=== PATIENT | female | born 1985 | race Caucasian/White ===

== ENCOUNTER 2020-08-18 20:02 | Inpatient (IN) ==
[2020-08-18] MEDS ORDERED: OXYTOCIN 30 UNITS/500 ML BAG IV PRN ×2 (20:33→23:32)
[2020-08-18] MEDS ORDERED: LACTATED RINGER'S 1,000 ML IV PRN (20:33)
[2020-08-18] MEDS ORDERED: ePHEDrine sulfate 50 MG/ML AMP ONE (20:43)
[2020-08-18] MEDS ORDERED: fentaNYL citrate 100 MCG/2 ML VIAL ONE (20:43)
[2020-08-18] MEDS ORDERED: SODIUM CHLORIDE 0.9% INJ 10 ML VIAL ONE (20:43)
[2020-08-18] MEDS ORDERED: BUPIVACAINE 0.25% 30 ML VIAL ONE (20:43)
[2020-08-18] MEDS ORDERED: fentaNYL 2MCG/ML ROPIVACAINE 1.25MG/ML 100 ML BAG EPI ONE (20:44)
[2020-08-18 20:58] LABS: Hematocrit (blood only) 40.2 % (37-47); Hemoglobin 13.9 g/dL (12.0-16.0); Mean Corpuscular Hemoglobin 31.7 pg (25-34); Mean Corpuscular Hgb Conc 34.6 g/dL (32-36); Mean Corpuscular Volume 91.8 fL (80-100); Platelet Count 305 K/uL (130-400); RDW Coefficient of Variation 13.7 % (11.5-14.5); RDW Standard Deviation 46.2 fL (36.4-46.3); Red Blood Count 4.38 M/uL (4.2-5.4); White Blood Count 10.82 K/uL (4.8-10.8)
[2020-08-18] MEDS ORDERED: diphenhydrAMINE 50 MG/ML VIAL IV PRN (21:23)
[2020-08-18] MEDS ORDERED: NALOXONE HCL 0.4 MG/1 ML VIAL/CARP IV PRN (21:23)
[2020-08-18] MEDS ORDERED: ePHEDrine sulfate 50 MG/ML AMP IV PRN (21:23)
[2020-08-18] MEDS ORDERED: fentaNYL 2MCG/ML ROPIVACAINE 1.25MG/ML 100 ML BAG EPI PRN (21:23)
[2020-08-18] MEDS ORDERED: ONDANSETRON INJ 2 MG/ML 2 ML VIAL IV PRN (21:23)
[2020-08-18] MEDS ORDERED: NALOXONE HCL 1 MG in SODIUM CHLORIDE 0.9% 1000ML 1,000 ML IV PRN (21:23)
--- NOTE | 2020-08-18 21:23 | Anesthesiology Consultation ---
Date of Service August 18, 2020 Assessment & Plan ASA ASA3 Proposed Anesthesia Anesthesia Type: Labor Epidural Risk / Benefits Reviewed With: PT / POA / Parent / Guardian, Accepts Plan and Informed Consent Obtained History Height/Weight Height: 5 ft 6 in Weight: 86.183 kg Allergies Allergy/AdvReac Type Severity Reaction Status Date / Time No Known Allergies Allergy ` Verified 08/15/20 11:37 Medications Home Medications Medication Instructions Recorded Confirmed Last Taken vits no.126-ferrous fum 1 tab PO DAILY #90 tab 03/11/20 08/18/20 08/18/20 08:00 28 mg iron-folic acid 800 mcg tablet buprenorphine HCl [Subutex] 8 mg SUBLINGUAL BID 08/18/20 08/18/20 08/18/20 16:30 Past Medical History Medical History Anxiety Chlamydia Depression Flank pain Hx of scoliosis Kidney stones Ovarian cyst Pelvic pain PID (pelvic inflammatory disease) Supervision of normal intrauterine in multigravida Exercise / Class Metabolic Activity II 4-5 Yardwork/Stairs/Walk up hill Past Family History Family History Other Diabetes Hypertension Past Surgical History Surgical History S/P tonsillectomy S/P wisdom tooth extraction Past Anesthesia History No Hx of Anesthesia Complications and No Family Hx of Anesthesia Complications History of PONV No Hx of PONV and No Hx of Motion Sickness Social History Smoking Status: Current every day smoker tobacco type: cigarettes Smoking cigarettes per day: 20 Hx Alcohol Use: No Hx Substance Use: Yes substance use type: former substance user Review of Systems denies fever/cough/ colds/ chest pain/ SOB/ OANH denies OANH Physical Exam Vital Signs Last Vital Signs Temp 36.8 C 08/18/20 20:11 Pulse 67 08/18/20 21:53 Resp 18 08/18/20 20:11 BP 118/70 08/18/20 21:48 Pulse Ox 98 08/18/20 21:53 ENMT Mouth: no TMJ abnormality and no dentition abnormality Thyromental Distance: > or= 3.5 Finger Breadths Mallampati Class: II Neck neck extension not limited Respiratory normal respiratory effort; no respiratory distress Auscultation: lungs clear to auscultation bilaterally Cardiovascular Rate/Rhythm: regular rate and regular rhythm Neurologic moves all extremities Psychiatric Orientation: alert and oriented x 3 Testing Laboratory Results 08/18/20 20:47
[2020-08-18 21:45] LABS: Amphetamines+Metham, Urine Neg (Neg); Barbiturates, Urine Neg (Neg); Benzodiazepine, Urine Neg (Neg); Cocaine, Urine Neg (Neg); MDMA (Ecstacy), Urine Neg (Neg); Methadone, Urine Neg (Neg); Opiate, Urine Neg (Neg); Phencyclidine, Urine Neg (Neg)
[2020-08-18] MEDS ORDERED: ACETAMINOPHEN 325 MG TAB PO PRN (23:32)
[2020-08-18] MEDS ORDERED: bisacodyL 10 MG SUPP PR PRN (23:32)
[2020-08-18] MEDS ORDERED: SUPERCREAM 0.870% 15 GM JAR EXT PRN (23:32)
[2020-08-18] MEDS ORDERED: BENZOCAINE 20% AER SPR 82.5 GM CAN EXT PRN (23:32)
[2020-08-18] MEDS ORDERED: DIPHTHERIA/TETANUS/PERTUSSIS 0.5 ML SYR/VIAL IM ONE (23:32)
[2020-08-18] MEDS ORDERED: HYDROCORTISONE ACETATE 25 MG SUPP PR PRN (23:32)
[2020-08-18] MEDS ORDERED: IBUPROFEN 600 MG TAB PO PRN (23:32)
--- NOTE | 2020-08-19 07:29 | Obstetrical Progress Note ---
Date of Service August 19, 2020 Assessment & Plan (1) Encounter for care and examination after delivery: 35yo day 1 s/p . Doing well. Routine care Subjective Ambulation: ambulating normally Voiding: no voiding problems Passing Gas:: Yes Diet Tolerance:: regular diet Lochia:: Moderate Physical Exam Constitutional WD/WN, vitals as above Respiratory normal respiratory effort; no respiratory distress and no labored breathing Gastrointestinal (Abdomen) Inspection/Auscultation: abdomen normal to inspection; abdomen not distended Percussion/Palpation: abdomen soft; abdomen nontender, no guarding and abdomen not rigid Genitourinary OB Exam Abdomen: + fundal height Fundus: + firm and + relation to umbilicus (Below); not tender and not boggy Results & Data ([facility]) Vital Signs (Past 12 Hours) Vital Signs Temp Pulse Pulse Resp BP BP Pulse Ox 08/19/20 03:00 37.0 C 62 16 130/67 98 08/19/20 01:30 18 08/19/20 01:27 162 H 161/78 H 08/19/20 01:16 74 108/61 08/19/20 01:06 77 118/74 08/19/20 01:00 18 08/19/20 00:56 71 120/63 08/19/20 00:47 62 125/62 08/19/20 00:30 18 08/19/20 00:27 60 108/54 L 08/19/20 00:16 54 L 124/61 08/19/20 00:15 18 08/19/20 00:13 70 140/55 L 08/19/20 00:00 18 08/18/20 23:47 67 119/63 08/18/20 23:45 18 08/18/20 23:37 65 122/70 08/18/20 23:30 36.5 C 18 08/18/20 23:24 75 132/62 08/18/20 23:23 79 100 08/18/20 23:19 69 121/65 08/18/20 23:18 74 98 08/18/20 23:15 66 89 L 08/18/20 23:13 71 99 08/18/20 23:08 69 99 08/18/20 23:04 124/70 08/18/20 23:03 67 98 08/18/20 22:58 69 98 08/18/20 22:53 67 99 08/18/20 22:50 67 125/61 08/18/20 22:48 69 99 08/18/20 22:43 68 100 08/18/20 22:38 96 H 100 08/18/20 22:35 98 H 117/58 L 08/18/20 22:33 97 H 100 08/18/20 22:28 71 100 08/18/20 22:23 63 100 08/18/20 22:19 75 122/70 08/18/20 22:18 65 100 08/18/20 22:13 66 100 08/18/20 22:12 84 93 08/18/20 22:08 71 99 08/18/20 22:04 60 119/68 08/18/20 22:03 73 99 08/18/20 21:59 18 08/18/20 21:58 79 99 08/18/20 21:53 67 98 08/18/20 21:50 18 08/18/20 21:48 71 118/70 99 08/18/20 21:46 60 117/63 08/18/20 21:45 18 08/18/20 21:44 79 18 120/72 08/18/20 21:43 75 100 08/18/20 21:41 67 119/62 08/18/20 21:39 18 08/18/20 21:38 84 100 08/18/20 21:33 66 99 08/18/20 21:28 66 99 08/18/20 20:11 36.8 C 18 08/18/20 20:08 79 130/61
[2020-08-19] MEDS ORDERED: PRENATAL VITAMIN 1 TAB PO SCH (08:00)
[2020-08-19] MEDS ORDERED: FERROUS SULFATE 325 MG TAB PO SCH (08:00)
--- NOTE | 2020-08-19 08:21 | Anesthesia Procedure Note ---
Date of Service August 19, 2020 Anesthesia Post Epidural Note Vital Signs Vital Signs: Temp Pulse Resp BP Pulse Ox 37.0 C 62 16 130/67 98 08/19/20 03:00 08/19/20 03:00 08/19/20 03:00 08/19/20 03:00 08/19/20 03:00 Notes Mental Status: alert / awake / arousable Nausea / Vomiting: adequately controlled Pain: adequately controlled Airway Patency, RR, SpO2: stable & adequate BP & HR: stable & adequate Hydration State: stable & adequate Neuraxial Anesthesia: was administered and sensory block is resolving Anesthetic Complications: no major complications apparent and Pt Satisfied with anesthetic care Epidural: Removed without complications and With tip intact
[2020-08-19] MEDS: buprenorphine HCL 8 MG SUBL SL SCH ×2 (08:31→20:06)
[2020-08-19] MEDS: DOCUSATE SODIUM 100 MG CAP PO SCH ×2 (08:31→20:06)
[2020-08-19] MEDS ORDERED: NICOTINE 14 MG/24 HR PATCH TD SCH (09:30)
--- NOTE | 2020-08-19 09:45 | Delivery Summary ---
DATE OF SERVICE: 08/18/2020. PROCEDURE: Normal spontaneous vaginal delivery. SURGEON: Cornelius Villalobos MD. PREOPERATIVE DIAGNOSES: 1. Single intrauterine at 40 weeks 6 days gestational age. 2. Spontaneous labor. 3. Spontaneous rupture of membranes. 4. Hepatitis C with positive viral load. 5. History of substance abuse. POSTOPERATIVE DIAGNOSES: 1. Single intrauterine at 40 weeks 6 days gestational age. 2. Spontaneous labor. 3. Spontaneous rupture of membranes. 4. Hepatitis C with positive viral load. 5. History of substance abuse. 6. Status post procedure. ESTIMATED BLOOD LOSS: 200 mL. DRAINS: None. FLUIDS: Continuous lactated Ringer URINE OUTPUT: None. COMPLICATIONS: None. FINDINGS: Viable with weight and Apgars pending. INDICATIONS: The patient is a 35-year-old G3, P2-0-0-2, admitted at 40 weeks 6 days gestational age, in active labor. The patient progressed without augmentation. She underwent spontaneous rupture of membranes with clear fluid and progressed rapidly to complete-complete +2 station, at which time she did feel an urge to push and pushed for approximately four contractions to achieve delivery. PROCEDURE: The patient progressed to 10 cm dilated, 100% effaced positive, 2 station, pushed over in tact perineum with epidural anesthesia and delivered a viable with weight and Apgars as noted above. Head of the delivered in ANTONIO position, restituted to right transverse. No nuchal co rd was noted and body and shoulders quickly followed. was noted to be vigorous upon delivery and a 1 minute delayed cord clamping was initiated, after which the cord was double clamped and cut. Cord blood obtained. Attention was then turned to delivery of Placenta which was delivered intact, 3-vessel cord, gentle cord traction. On inspection of the perineum, vagina, cervix, there was noted to be no lacerations. Sponge and instrument counts were correct at completion of the case. Both mo ther and were stable in the immediate post-delivery period. Job ID: [id number]
[2020-08-19] MEDS ORDERED: bisacodyL 5 MG TABEC PO SCH (20:00)
== END 2020-08-19 23:15 | disposition home or self-care (01) | DRG 807 ==
LOC: OPB 20:02 → 4S1 20:04 → 4S2 08-19 01:56